=== PATIENT | female | born 1980 ===

== ENCOUNTER 2017-03-19 15:33 | Outpatient (CLI) | payer OTHER ==
--- NOTE | 2017-03-20 08:22 | Ultrasound Report ---
TRANSABDOMINAL AND TRANSVAGINAL PELVIC ULTRASOUND: 03/19/17 15:33:00 CLINICAL: PCOS and fibroids FINDINGS: Transabdominal and transvaginal pelvic ultrasound demonstrated a fibroids uterus measuring 9.8 x 4.4 x 5.2 cm. A single measurable posterior intramural fibroid in the uterine body measures 3.7 x 3.3 x 2.8 cm. The fibroid also has a subtotal component.The endometrium mildly thickened and measures 12.0 mm AP thickness. Numerous small follicles in the right ovary with a dominant 2.3 cm follicle. The right ovary measures 4.5 x 2.2 x 4.1cm and is better imaged transabdominally. Numerous small follicles of the left ovary with a dominant 1 cm follicle. The left ovary measures 3.6 x 2.0 x 3.0cm. No adnexal mass. No free fluid. Normal urinary bladder. IMPRESSION: 1. Fibroid uterus with minimal uterine enlargement and a single measurable 3.7 cm fibroid in the uterine body with both intramural and submucosal components. 2. Normal endometrium. 3. Numerous follicles in each ovary which supports the diagnosis of PCOS.
== END 2017-03-19 15:34 | disposition home or self-care (01) ==
LOC: SPVWC 15:33 → EDBD 16:00
PROVIDERS: ATTEND Family Medicine
DX: E28.2 Polycystic ovarian syndrome (principal); D25.0 Submucous leiomyoma of uterus; D25.1 Intramural leiomyoma of uterus; E66.01 Morbid (severe) obesity due to excess calories; R73.03 Prediabetes; N85.2 Hypertrophy of uterus
CPT/HCPCS: 76830; 76856